=== PATIENT | female | born 1935 | race Caucasian/White ===

== ENCOUNTER 2016-12-19 10:51 | Emergency (ER) | payer MEDICARE ==
[2016-12-19 11:33] VITALS: BP 105/68
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
== END 2016-12-19 11:54 | disposition left against medical advice (07) ==
LOC: UCEAST 10:51
DX: R55 Syncope and collapse (principal); M54.2 Cervicalgia; I48.91 Unspecified atrial fibrillation; Z90.710 Acquired absence of both cervix and uterus; Z88.5 Allergy status to narcotic agent
CPT/HCPCS: 93005; 99213; G0463

== ENCOUNTER 2016-12-19 12:48 | Observation (INO) | payer OTHER ==
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
--- NOTE | 2016-12-19 14:14 | RAD ---
Indication: Syncope. History of cardiac arrhythmia. Question CHF or pneumonia. Comparison: November 13, 2014 Technique: Upright AP 1351 hours Report: Mild linear opacities at the RIGHT lung base are most suspicious for subsegmental atelectasis. Negative for pleural effusion or pneumothorax. The heart, pulmonary vasculature, and mediastinal contours are unremarkable. No rib fractures evident. IMPRESSION: Probable mild subsegmental atelectasis at the RIGHT lung base.
[2016-12-19] MEDS: NS 0.9% 1000 ML* 2,000 ML IV ONE ×2 (14:15→14:16)
[2016-12-19 14:32] LABS: Hematocrit 37 % (35-47); Hemoglobin 12.3 g/dl (12.0-16.0); Mean Corpuscular HGB Conc 33 g/dl (31-36); Mean Corpuscular Hemoglobin 31 pg (27-31); Mean Corpuscular Volume 92 fL (80-97); Mean Platelet Volume 7 um3 (7.4-10.4); Red Blood Count 4.01 10^6/ul (4.0-5.4); Red Cell Distribution Width 13 % (10.5-15); White Blood Count 6.4 10^3/ul (3.5-10.8)
[2016-12-19 14:49] LABS: Albumin 3.9 g/dL (3.2-5.2); BUN/Creatinine Ratio 20.9 (8-20); EGFR African American 81.7 (>60); EGFR Non-African American 63.5 (>60); Globulin 3.5 g/dL (2-4); Magnesium 2.1 mg/dL (1.9-2.7); Potassium 3.9 mmol/L (3.5-5.0); Total Bilirubin 0.5 mg/dL (0.2-1.0); Total Protein 7.4 g/dL (6.4-8.9)
[2016-12-19 15:26] LABS: Urine Bacteria Absent (Absent); Urine Bilirubin Negative (Negative); Urine Glucose Negative (Negative); Urine Nitrite Negative (Negative)
[2016-12-19 15:55] LABS: TSH (Thyroid Stimulating Horm) 2.81 mcIU/mL (0.34-5.60)
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
[2016-12-19] MEDS: Metoprolol Tartrate TAB* 25 MG PO SCH (20:12)
[2016-12-19] MEDS: CMCS - Dabigatran CAP(NF) 150 MG CAP PO SCH (20:12)
[2016-12-19] MEDS: Preservision Areds(NF) CAP PO SCH (20:12)
[2016-12-19] MEDS ORDERED: Magnesium Oxide TAB* 400 MG PO SCH (21:00)
[2016-12-20 07:42] VITALS: BP 97/46
[2016-12-20] MEDS: Metoprolol Tartrate TAB* 25 MG PO SCH (08:49)
[2016-12-20] MEDS: CMCS - Dabigatran CAP(NF) 150 MG CAP PO SCH (08:49)
[2016-12-20] MEDS: Preservision Areds(NF) CAP PO SCH (09:25)
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
== END 2016-12-20 12:25 | disposition home or self-care (01) ==
LOC: ED 12:48 → MEDTELE 17:08
PROVIDERS: ADMIT Internal Medicine; ATTEND Internal Medicine
DX: R55 Syncope and collapse (principal); I48.0 Paroxysmal atrial fibrillation; Z79.899 Other long term (current) drug therapy; Z88.5 Allergy status to narcotic agent; H35.30 Unspecified macular degeneration; R00.1 Bradycardia, unspecified; Z79.02 Long term (current) use of antithrombotics/antiplatelets
CPT/HCPCS: 36415; 70450; 71010; 80053; 81003; 81015; 82550; 83605; 83735; 83880; 84443; 84484; 85025; 85610; 87077; 87086; 93005; 93306; 96360; 99284; A9270-GY; G0378

== ENCOUNTER 2017-01-27 07:54 | Inpatient (IN) | payer MEDICARE ==
[2017-01-27] MEDS ORDERED: ceFAZolin 2 GM PREMIX(*) 2 GM/50 ML BAG IVPB ONE (09:00)
[2017-01-27] MEDS ORDERED: Diazepam TAB(*) 5 MG ONE (09:09)
[2017-01-27 09:10] LABS: Hematocrit 37 % (35-47); Hemoglobin 12.4 g/dl (12.0-16.0); Mean Corpuscular HGB Conc 34 g/dl (31-36); Mean Corpuscular Hemoglobin 31 pg (27-31); Mean Corpuscular Volume 93 fL (80-97); Mean Platelet Volume 7 um3 (7.4-10.4); Red Blood Count 3.98 10^6/ul (4.0-5.4); Red Cell Distribution Width 13 % (10.5-15); White Blood Count 7.3 10^3/ul (3.5-10.8)
[2017-01-27 09:27] LABS: Calcium 9.8 mg/dL (8.6-10.3); EGFR African American 95.6 (>60); EGFR Non-African American 74.4 (>60)
[2017-01-27] MEDS ORDERED: fentaNYL* 50 MCG/ML 2 ML VIAL (100 MCG VIAL) ONE (11:15)
[2017-01-27] MEDS ORDERED: Lidocaine 1% INJ* 10 MG/ML 30 ML SDV ONE (11:15)
[2017-01-27] MEDS ORDERED: Flumazenil* 0.1 MG/ML 5 ML MDV ONE (11:15)
[2017-01-27] MEDS ORDERED: Naloxone* 0.4 MG/ML 1 ML VIAL ONE (11:15)
[2017-01-27] MEDS ORDERED: Iohexol 300 (CONTRAST) 10 ML SDV ONE (11:15)
[2017-01-27] MEDS ORDERED: Midazolam* 1 MG/ML 5 ML VIAL (5 MG) ONE ×2 (11:15→12:39)
[2017-01-27] MEDS ORDERED: oxyCODONE/Acetamin 5/325 MG* TAB PO PRN (14:15)
[2017-01-27] MEDS ORDERED: Acetaminophen TAB* 325 MG PO PRN (14:15)
[2017-01-27] MEDS ORDERED: ceFAZolin VIAL(*) 1 GM in D5W 50 ML BAG* 50 ML IVPB SCH (15:00)
[2017-01-27] MEDS: ceFAZolin VIAL(*) 1 GM in NS 0.9% 50 ML* 50 ML IVPB SCH (20:19)
[2017-01-27] MEDS: Nitroglycerin TAB 0.4 MG* 0.4 MG TAB SL PRN ×3 (23:22→23:38)
[2017-01-28] MEDS: ceFAZolin VIAL(*) 1 GM in NS 0.9% 50 ML* 50 ML IVPB SCH ×2 (04:14→12:02)
--- NOTE | 2017-01-28 08:03 | RAD ---
INDICATION: Post pacemaker device placement. Unable to raise LEFT arm. COMPARISON: No relevant prior exams available on the [facility] for comparison. TECHNIQUE: Dual energy PA and routine lateral views of the chest were obtained. REPORT: Elevated lung volumes. Mild prominence of the interstitial markings. Minimal LEFT basilar subsegmental atelectasis. Small LEFT pneumothorax with pleural line seen at the level of the third posterior intercostal space. Negative for mediastinal shift. Negative for pleural effusions. RIGHT atrial and RIGHT ventricular level pacemaker leads. Negative for cardiomegaly. Unremarkable central pulmonary vasculature and mediastinal contours. IMPRESSION: Small LEFT apical pneumothorax. Negative for mediastinal shift. Results discussed with Nurse Dacosta 01/28/2017 7:58 AM EDT
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
[2017-01-28] MEDS ORDERED: Metoprolol Succinate XL TAB* 25 MG PO SCH (12:00)
[2017-01-29 07:55] VITALS: BP 112/59
--- NOTE | 2017-01-29 08:54 | RAD ---
INDICATION: Follow-up pneumothorax following pacer placement. COMPARISON: Chest x-ray dated January 28, 2017 TECHNIQUE: PA and lateral views of the chest were obtained. FINDINGS: Again seen is the patient's left upper chest cardiac pacemaker with 2 leads overlying the heart and surgical skin greer. The heart and mediastinum are normal in size and contour. There is a tiny apical pneumothorax that appears to be reduced in size when compared to the previous day chest x-ray. The lungs are otherwise clear. Visualized bones are normal for the patient's age. There is no radiographic evidence of free air beneath the diaphragm IMPRESSION: VERY SMALL APICAL LEFT-SIDED PNEUMOTHORAX THAT IS SMALLER WHEN COMPARED TO THE PREVIOUS CHEST X-RAY.
== END 2017-01-29 13:00 | disposition home or self-care (01) | DRG 243 ==
LOC: CHICATH 07:54 → MEDTELE 13:49 → OBSVTOIN 01-28 15:00
PROVIDERS: ADMIT Specialist; ATTEND Specialist
PROC: 0JH606Z Insertion of Pacemaker, Dual Chamber into Chest Subcutaneous Tissue and Fascia, Open Approach (ICD-10-PCS; principal; 2017-01-28)
PROC: 02H63JZ Insertion of Pacemaker Lead into Right Atrium, Percutaneous Approach (ICD-10-PCS; 2017-01-28)
PROC: 02HK3JZ Insertion of Pacemaker Lead into Right Ventricle, Percutaneous Approach (ICD-10-PCS; 2017-01-28)
DX: I49.5 Sick sinus syndrome (principal); J95.811 Postprocedural pneumothorax; I48.0 Paroxysmal atrial fibrillation; I08.1 Rheumatic disorders of both mitral and tricuspid valves; Z88.5 Allergy status to narcotic agent; M41.80 Other forms of scoliosis, site unspecified; E78.2 Mixed hyperlipidemia; Z82.49 Family history of ischemic heart disease and other diseases of the circulatory system; Z85.79 Personal history of other malignant neoplasms of lymphoid, hematopoietic and related tissues; H35.30 Unspecified macular degeneration; Y83.8 Other surgical procedures as the cause of abnormal reaction of the patient, or of later complication, without mention of misadventure at the time of the procedure; M54.2 Cervicalgia; R79.89 Other specified abnormal findings of blood chemistry
CPT/HCPCS: 33208; 36415; 71020; 80048; 84484; 85025; 85610; 85730; 93005; A9270-GY; C1785; C1898; G0378; J0690; J2001; J2250; J2310; J3010; Q9967

== ENCOUNTER 2017-06-12 19:35 | Emergency (ER) | payer MEDICARE ==
[2017-06-12] MEDS ORDERED: oxyCODONE/Acetamin 5/325 MG* TAB PO ONE ×2 (20:04→21:50)
--- NOTE | 2017-06-12 20:48 | RAD ---
Indication: Right knee and lower leg pain after a fall Comparison: None. Technique: AP and lateral views right lower leg and 4 views of the right knee. Report: The visualized bones are adequately corticated and well aligned. There is no acute fracture, dislocation or other focal abnormality. There is no large joint effusion. Mild degenerative changes of the right knee include narrowing of the medial compartment and sharpening of the lateral tibial spine. The soft tissues appear grossly normal. IMPRESSION: No radiographically apparent acute fracture or dislocation. If the patient's symptoms persist, follow-up imaging is recommended.
[2017-06-12 22:20] VITALS: BP 127/68
--- NOTE | 2017-06-12 22:23 | ED ---
Vanessa Carmichael Edward, scribed for [facility]asiel Duvall on 06/12/17 at 1951 . Lower Extremity - HPI Summary HPI Summary: 81 y/o female ZURDO sudden onset R knee pain radiating down to her R foot s/p fall earlier this evening at around 18:00. The pain is rated at 8/10 per nursing not aggravated with movement of the R leg. The pain is located mostly behind the R knee. The pt denies R hip pain. For the past couple of weeks the pt c/o stinging pain behind the R knee. Pt went out from her garage to the house and stepped onto a step, lost her balance, and fell. Pt states her R knee is unstable. Pt has been going to PT for her knee. - History of Current Complaint Chief Complaint: EDExtremityLower Stated Complaint: FALL/ RT KNEE PAIN Time Seen by Provider: 06/12/17 19:51 Hx Obtained From: Patient Mechanism Of Injury: Fall From A Standing Position Onset of Pain: Immediate, Post Accident Onset/Duration: Still Present Severity Currently: Severe Pain Intensity: 8 Pain Scale Used: 0-10 Numeric Location: Is Discrete @ - behind R knee Associated Signs And Symptoms: Positive: Knee Pain - R knee pain down to R foot Aggravating Factor(s): Movement - of R leg - Allergies/Home Medications Allergies/Adverse Reactions: Allergies Allergy/AdvReac Type Severity Reaction Status Date / Time Codeine AdvReac Nausea And Verified 12/19/16 10:57 Vomiting PMH/Surg Hx/FS Hx/Imm Hx Previously Healthy: No Cardiovascular History: Reports: Hx Atrial Fibrillation, Hx Pacemaker/ICD Musculoskeletal History: Denies: Hx Arthritis, Hx Osteoporosis Sensory History: Reports: Hx Contacts or Glasses Denies: Hx Hearing Aid Opthamlomology History: Reports: Hx Contacts or Glasses Psychiatric History: Denies: Hx Panic Disorder - Cancer History Cancer Type, 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 Hx Chemotherapy: No Hx Radiation Therapy: No - Surgical History Surgery Procedure, Year, and Place: tonsillectomy; hysterectomy; ARMD left eye; left ulna ORIF; batholin cyst excised (benign) Infectious Disease History: No Infectious Disease History: Reports: Traveled Outside the [place] in Last 30 Days - Ed Denies: History Other Infectious Disease - Family History Known Family History: Positive: Other - pos: breast CA - Social History Alcohol Use: None Hx Substance Use: No Substance Use Type: Reports: None Hx Tobacco Use: No Smoking Status (MU): Never Smoked Tobacco Review of Systems Constitutional: Negative Eyes: Negative ENT: Negative Cardiovascular: Negative Respiratory: Negative Gastrointestinal: Negative Genitourinary: Negative Positive: Arthralgia - R knee pain Skin: Negative Neurological: Negative Psychological: Normal All Other Systems Reviewed And Are Negative: Yes Physical Exam Triage Information Reviewed: Yes Vital Signs On Initial Exam: Initial Vitals Temp Pulse Resp BP Pulse Ox 98.7 F 72 16 120/56 99 06/12/17 19:40 06/12/17 19:40 06/12/17 19:40 06/12/17 19:40 06/12/17 19:40 Vital Signs Reviewed: Yes Appearance: Positive: Well-Appearing, No Pain Distress Skin: Positive: Warm, Skin Color Reflects Adequate Perfusion, Dry Head/Face: Positive: Normal Head/Face Inspection Eyes: Positive: EOMI, MELISSA ENT: Positive: Normal ENT inspection Neck: Positive: Supple, Nontender Respiratory/Lung Sounds: Positive: Clear to Auscultation, Breath Sounds Present Cardiovascular: Positive: RRR, Pulses are Symmetrical in both Upper and Lower Extremities Abdomen Description: Positive: Nontender, Soft Bowel Sounds: Positive: Present Musculoskeletal: Positive: Other - Tenderness over R knee. Restricted ROM @ R knee. No neurovascular deficits. No tenderness over the hips. Neurological: Positive: Normal, Sensory/Motor Intact, Alert, Oriented to Person Place, Time Diagnostics - Vital Signs Vital Signs Temp Pulse Resp BP Pulse Ox 06/12/17 19:40 98.7 F 72 16 120/56 99 - Laboratory Lab Statement: Any lab studies that have been ordered have been reviewed, and results considered in the medical decision making process. - Radiology LOWER EXTREMITY XR Xray Interpretation: No Acute Changes - No radiographically apparent acute fracture or dislocation. If the patient's symptoms persist, follow-up imaging is recommended. Radiology Interpretation Completed By: Radiologist R KNEE XR Xray Interpretation: No Acute Changes - No radiographically apparent acute fracture or dislocation. If the patient's symptoms persist, follow-up imaging is recommended. Radiology Interpretation Completed By: Radiologist Re-Evaluation - Re-Evaluation 1 Re-Evaluation Time: 21:32 Change: Improved Comment: Discuss imaging results and plan of care Lower Extremity Course/Dx - Course Assessment/Plan: 81 y/o female ZURDO sudden onset R knee pain radiating down to her R foot s/p fall earlier this evening at around 18:00. The pain is rated at 8 /10 per nursing not aggravated with movement of the R leg. The pain is located mostly behind the R knee. The pt denies R hip pain. For the past couple of weeks the pt c/o stinging pain behind the R knee. Pt went out from her garage to the house and stepped onto a step, lost her balance, and fell. Pt states her R knee is unstable. Pt has been going to PT for her knee. LOWER EXTREMITY XR and R KNEE XR SHOW No radiographically apparent acute fracture or dislocation. If the patient's symptoms persist, follow-up imaging is recommended. Pt comes to the ED c/o R knee pain. Xr done and negative. Pt is able to move R knee now. Pt will be d/c home with f/u with orthopedics in 3 days. - Diagnoses Differential Diagnosis/HQI/PQRI: Positive: Contusion, Fracture (Closed), Sprain , Strain, Tendonitis Provider Diagnoses: Right knee pain, Strain of right knee Discharge - Discharge Plan Condition: Stable Disposition: HOME Prescriptions: Oxycodone W/ Acetaminophen [Percocet 2.5-325 mg (NF)] 1 tab PO Q8H PRN #10 tab MDD 3 PRN Reason: Pain Patient Education Materials: Knee Pain (ED) Referrals: Kendrick Molina MD [Medical Doctor] - 3 Days (PLEASE F/U IN 2-3 DAYS) The documentation as recorded by the Vanessa jauregui Edward accurately reflects the service I personally performed and the decisions made by Jadiel parr Emmanuel.
== END 2017-06-12 22:23 | disposition home or self-care (01) ==
LOC: ED 19:35
DX: S83.91XA Sprain of unspecified site of right knee, initial encounter (principal); Z85.42 Personal history of malignant neoplasm of other parts of uterus; Z85.828 Personal history of other malignant neoplasm of skin; W19.XXXA Unspecified fall, initial encounter; Y93.01 Activity, walking, marching and hiking; Y92.099 Unspecified place in other non-institutional residence as the place of occurrence of the external cause; I48.91 Unspecified atrial fibrillation; Z95.810 Presence of automatic (implantable) cardiac defibrillator
CPT/HCPCS: 99283; A9270-GY

== ENCOUNTER → 2019-05-25 07:40 | Day surgery (SDC) | payer MEDICARE ==
[~2019-05-25 07:40] MED LIST: Acetaminophen TAB* 325 MG PO PRN; Buffered Lidocaine 1% SYRIN* 1 ML/SYRINGE INTRADERM ONE; Bupivacaine 0.25% SDV PF* 10 ML VIAL INJ ONE; Dexamethasone IV* 4 MG/ML 1 ML (4 MG) ONE; DiMENhydriNATE IV* 50 MG/ML VIAL IV PUSH PRN; Ketorolac INJ* 30 MG/ML 1 ML VIAL ONE; Lactated Ringers 1000 ML Bag* 1,000 ML IV SCH; Lidocaine 2% PF * 5 ML VIAL ONE; Lidocaine 2.5%/Prilocain 2.5%* 5 GM TUBE ONE; Midazolam* 1 MG/ML 2 ML VIAL (2 MG) ONE; Naloxone* 0.4 MG/ML 1 ML VIAL IV PRN; Ondansetron INJ* 2 MG/ML VIAL ONE; Propofol* 10 MG/ML 20 ML BTL ONE; ceFAZolin 2 GM in NS PREMIX(*) 2 GM/100 ML BAG IVPB ONE; fentaNYL* 50 MCG/ML 2 ML VIAL (100 MCG VIAL) IV PRN; fentaNYL* 50 MCG/ML 2 ML VIAL (100 MCG VIAL) ONE
[2019-05-25 16:51] VITALS: BP 112/71
--- NOTE | 2019-05-25 18:51 | OP ---
CC: Dr. Jeannette Rivera; Dr. Claudia Covington * DATE OF OPERATION: 05/25/19 - [facility] DATE OF : 37 SERVICE: General Surgery. SURGEON: Renita Rodarte MD SHERIFF'S SERGEANT: Nupur Horne NP ANESTHESIOLOGIST: Alida Causey DO PRE-OP DIAGNOSIS: Left breast cancer. POST-OP DIAGNOSIS: Left breast cancer. OPERATIVE PROCEDURE: Left breast lumpectomy and sentinel lymph node biopsy. SPECIMENS: Left breast mass and sentinel lymph node biopsy #1 and #2, and axillary bed contents. ESTIMATED BLOOD LOSS: Minimal, less than 10 cc. SENTINEL LYMPH NODE BIOPSY: Lymphoscintigraphy. INDICATIONS FOR SURGERY: Ms. Valdes is a very pleasant 83-year-old female with a history of atrial fibrillation who presented with a palpable left breast mass and was found to have left breast invasive ductal adenocarcinoma during work up. She therefore gave informed consent for a left breast lumpectomy and a sentinel lymph node biopsy. She understood that the risks include, but were not limited to bleeding, infection, injury to nearby structures. She understood these risks as well as alternatives and benefits and she wished to proceed. DESCRIPTION OF PROCEDURE: The patient was brought back to the operating room and placed on the operating table in the supine position. Sequential compression devices were placed on the bilateral lower extremities for DVT prophylaxis. Antibiotics with Ancef was administered prior to incision. General endotracheal anesthesia was induced and the patient's left breast and axilla were prepped and draped in normal sterile fashion. Prior to beginning the procedure, a time-out was performed verifying the patient's name, date of , and procedure to be performed. Next, the palpable left breast mass was palpated in the upper outer quadrant at approximately 2 o'clock. It was also confirmed with ultrasound. An incision was made over the palpable mass. The skin was divided down to the subcutaneous tissue and then a cone of tissue surrounding the palpable breast mass was divided and removed as specimen. The specimen was marked while in situ with the following sutures: The short suture marked the superior pole, the medium length suture marked the medial pole, and the long suture marked the lateral pole. Specimen was carried off and sent to Pathology. After this, hemostasis was obtained in the breast and attention was turned towards the axilla. An incision was made in the axilla over the point where there was the highest count was identified using the navigator. The skin was divided down to the subcutaneous tissue. The navigator was used to identify the axillary bed content that had the highest counts and the sentinel lymph node #1 was obtained. The in situ count was 256 and ex vivo count was 224. The sentinel lymph node #2 was also then dissected out and its in situ count was 143 and ex vivo count was 88. Additional axillary bed content was also removed. The final axillary bed count was 2. Hemostasis was obtained in the axillary cavity and then the incision was closed. The subdermal layer was closed using interrupted 3-0 Vicryl sutures and the skin was closed using a 4-0 Monocryl suture. In a similar fashion at the breast, the subdermal layer was closed using interrupted 3-0 Vicryl sutures and the skin was closed using a running 4-0 Monocryl suture. Sterile dressing was then placed. The patient's anesthesia was reversed and she was taken to the PACU in stable condition. At the end of the case, all counts were correct and I was present during the entirety of the case. [id number]/[facility] #: [id number] JAMEE
== END | disposition home or self-care (01) ==
LOC: SDS 07:40
PROVIDERS: ATTEND Surgery
DX: C50.412 Malignant neoplasm of upper-outer quadrant of left female breast (principal); C77.3 Secondary and unspecified malignant neoplasm of axilla and upper limb lymph nodes; Z95.0 Presence of cardiac pacemaker; I47.2 Ventricular tachycardia; Z79.01 Long term (current) use of anticoagulants; I48.91 Unspecified atrial fibrillation; I08.1 Rheumatic disorders of both mitral and tricuspid valves
CPT/HCPCS: 78195; 88307; 88342; A9270-GY; A9541; J0690; J1100; J1885; J2250; J2405; J2704; J3010; J3490